=== PATIENT | female | born 1985 | race Caucasian/White ===

== ENCOUNTER 2023-04-18 20:12 | Emergency (ER) | payer OTHER, SELFPAY ==
--- NOTE | ~2023-04-18 | XR_ITS ---
EXAMINATION: XR CHEST CLINICAL INFORMATION: Chest pain. Cough. COMPARISON: None available. TECHNIQUE: 2 views of the chest were obtained. FINDINGS: No significant abnormality is noted involving the heart, lungs, mediastinum, bony thorax or soft tissues. XR/XR chest 2V IMPRESSION: Unremarkable examination.
[2023-04-18 20:16] VITALS: BP 124/69; PULSE 93; RESP 18; TEMP 36.8; O2SAT 98; BMI 26.8
--- NOTE | 2023-04-18 20:16 | ED_ITS ---
HPI - General Adult General Chief complaint: Upper Respiratory Symptoms Stated complaint: SOB, Wheezing Time Seen by Provider: 04/18/23 22:05 Source: patient Mode of arrival: ambulatory Limitations: no limitations History of Present Illness HPI narrative: Patient comes to the emergency room complaining of left-sided chest pain with deep inspiration, cough, sore throat for 2 weeks. Patient denies fever chills, no shortness of breath. Related Data Allergies Allergy/AdvReac Type Severity Reaction Status Date / Time No Known Allergies Allergy Verified 04/18/23 20:20 Review of Systems 2 Review of Systems: Constitutional : No Weight loss, No Fever, No Chills, No Night Sweats, No Fatigue, No Malaise ENT/Mouth : No Hearing loss, No Ear Pain, No Nasal Congestion, No Sinus Pain, No Hoarseness, complaining of sore throat, No Rhinorrhea, No Swallowing Difficulty Eyes: No Eye Pain, No Swelling, No Redness, No Foreign Body, No Discharge, No Vision Changes Cardiovascular : Complaining of chest pain on the left particularly with deep inspiration and palpating over the left side of the chest No SOB, No Dyspnea on Exertion, No Orthopnea, No Edema, No Palpitations Respiratory : Complaining of cough No Sputum, No Wheezing, No Smoke Exposure, No Dyspnea Gastrointestinal : No Nausea, No Vomiting, No Diarrhea, No Constipation, No abdominal Pain, No Hematochezia, No Melena Genitourinary : no irregular bleeding, No Dysuria, No Urinary Frequency, No Hematuria, No Urinary Incontinence, No Urgency, No Flank Pain, No Urinary Flow Changes, No Hesitancy Musculoskeletal : No joint pain, No Myalgias, No Joint Swelling Skin : No Skin Lesions, No rash Neuro : No Weakness, No Numbness, No Paresthesias, No Loss of Consciousness, No Dizziness, No Headache Psych : No Anxiety/Panic, No Depression, No SI/HI/AH/VH, No Social Issues, Heme/Lymph: No Bruising, No Bleeding,No Lymphadenopathy Endocrine : No Polyuria, No Polydipsia, No Temperature Intolerance PMFSH Social History Social History Advance Directives: No Advance Directives Information Provided: No Physical Exam ED Vital Signs: Vital Signs - 24 hr 04/18/23 20:16 Temperature 98.2 F Pulse Rate 93 Respiratory Rate 18 Blood Pressure 124/69 Pulse Oximetry 98 Oxygen Delivery Method Room Air BMI result Body Mass Index 26.8 Const Other: Appearance: Alert. Oriented X3. No acute distress. Eyes: Pupils equal, round and reactive to light. ENT: Pharynx normal. Neck: Normal inspection. Neck supple. No lymph nodes noted. No crepitus CVS: Reproducible chest pain to palpation over the left side of the chest, mild, Normal heart rate and rhythm. Pulses normal. Normal S1 and S2 Respiratory: No respiratory distress. Breath sounds normal. No Wheezing. No rales Abdomen: Soft and nontender. No rigidity. No distention. Skin: Skin warm and dry. Normal skin color. Normal skin turgor. Extremities: No lower extremity edema. No Lacerations. No Rash Neuro: Oriented X 3. No motor deficit. No sensory deficit. Moving all extremities. No slurred speech. CN 2 through 12 grossly intact Psych: calm, cooperative, normal affect Course Course Course Narrative: This is a rapid medical exam: Additional HPI, ROS, PE not included below will be deferred to primary provider. Patient is a 37-year-old female presenting to the ED with complaint of shortness of breath and left sided chest pain. States had cold symptoms last week which have improved but then developed the shortness of breath and chest pain for 3 days. Plan: EKG, CXR, labs, viral swabs Medical Decision Making Medical Decision Making [facility] Narrative: -my interpretation of EKG: Normal sinus rhythm, heart rate 81, no ST segment depression or elevation, nonspecific T-wave inversion in lead 3, QTC 439. -my interpretation of labs: Serology negative for influenza, RSV, COVID , troponin negative -my interpretation of chest x-ray: Negative for infiltrates Differential Diagnosis Differential Diagnoses: The differential diagnosis associated with the presentation includes (ACS, viral URI, strep) Lab Data [facility] Lab Attestation statement: I reviewed the patient's lab results. 04/18/23 22:11 04/18/23 22:11 Labs: Lab Results 04/18/23 04/18/23 Range/Units 20:23 22:11 WBC 11.4 H (4.8-10.8) X10*3/uL RBC 4.07 L (4.20-5.50) X10*6/uL Hgb 12.6 (12.0-16.0) g/dl Hct 36.8 L (37.0-47.0) % MCV 90.4 (80.0-98.0) fL MCH 31.0 (27.0-33.0) pg MCHC 34.2 (31.0-35.0) g/dl RDW 12.6 (11.0-16.0) % Plt Count 253 (160-400) X10*3/uL MPV 9.1 L (9.4-12.3) fL Immature Gran % (Auto) 0.4 (0.0-0.4) % Neut % (Auto) 58.8 (45-73) % Lymph % (Auto) 31.2 (20-40) % Gordon % (Auto) 6.2 (2-11) % Eos % (Auto) 2.6 (0-4) % Baso % (Auto) 0.8 (0-2) % Lymph # (Auto) 3.5 (1.2-4.9) X10*3/uL Gordon # (Auto) 0.7 (0.1-1.2) X10*3/uL Eos # (Auto) 0.3 (0.0-0.4) X10*3/uL Baso # (Auto) 0.1 (0.0-0.2) X10*3/uL Abs Immat Gran (auto) 0.04 H (0.00-0.03) X10*3/uL Absolute Neuts (auto) 6.7 (2.0-8.3) x10*3/uL Absolute Nucleated RBC 0.000 (0.0-0.012) X10*3/uL Nucleated RBC % (auto) 0.0 (0.0-0.2) /100WBC PT 11.3 (11.1-13.3) SEC INR 0.9 (0.9-1.1) Sodium 137 (135-145) mmol/L Potassium 3.4 (3.3-5.1) mmol/L Chloride 104 (96-108) mmol/L Carbon Dioxide 25 (22-29) mmol/L Anion Gap 11 L (12-20) BUN 12 (9-16) mg/dL Creatinine 0.66 (0.5-1.4) mg/dL Estim Creat Clear Calc 118.7 Estimated GFR > 60 Random Glucose 93 (60-115) mg/dL Calcium 8.9 (8.4-10.2) mg/dL Troponin I High Sens < 2.7 (<3.5-17.0) ng/L Influenza Type A (PCR) NEGATIVE (Negative) Influenza Type B (PCR) NEGATIVE (Negative) RSV RNA Qual (PCR) NEGATIVE (Negative) SARS-CoV-2 RNA (RT-PCR) NEGATIVE (Negative) Independent Interpretation I performed an independent interpretation of an: EKG and Plain X-Ray Radiology Impression Discussion of test interpretation with radiology: I have reviewed the radiologist's reading. Radiologist Impression: FINDINGS: No significant abnormality is noted involving the heart, lungs, mediastinum, bony thorax or soft tissues. XR/XR chest 2V IMPRESSION: Unremarkable chest examination. Discharge Plan Discharge Clinical Impression: Viral URI Patient Disposition: Home, Self-Care Instructions: Viral Syndrome (ED) Additional Instructions: Please follow-up with your primary care physician tomorrow. If you have any worsening or new symptoms, please return to the emergency room or call 911
--- NOTE | 2023-04-18 20:20 | ECG_ITS ---
Test Reason : CHEST PAIN Blood Pressure : / mmHG Vent. Rate : 081 BPM Atrial Rate : 081 BPM P-R Int : 168 ms QRS Dur : 082 ms QT Int : 378 ms P-R-T Axes : 053 021 041 degrees QTc Int : 439 ms Normal sinus rhythm Normal ECG No previous ECGs available Referred By: Faiza Sheppard Electronically Signed By:Cameron Ramirez
[2023-04-18 21:09] LABS: Influenza A PCR NEGATIVE (Negative); Influenza B PCR NEGATIVE (Negative); Resp Syncy Virus RNA Qual PCR NEGATIVE (Negative); SARS COV2 PCR INHOUSE NEGATIVE (Negative)
[2023-04-18 22:16] LABS: MANUAL DIFF FLAG NO
[2023-04-18 22:18] LABS: Basophils Absolute Auto 0.1 X10*3/uL (0.0-0.2); Basophils Percent Auto 0.8 % (0-2); Eosinophils Absolute Auto 0.3 X10*3/uL (0.0-0.4); Eosinophils Percent Auto 2.6 % (0-4); Hematocrit 36.8 % (37.0-47.0); Hemoglobin 12.6 g/dl (12.0-16.0); Imm Gran Abs Auto 0.04 X10*3/uL (0.00-0.03); Imm Gran Pct Auto 0.4 % (0.0-0.4); Lymphocytes Absolute Auto 3.5 X10*3/uL (1.2-4.9); Lymphocytes Percent Auto 31.2 % (20-40); Mean Corpuscular HGB Conc 34.2 g/dl (31.0-35.0); Mean Corpuscular Volume 90.4 fL (80.0-98.0); Mean Platelet Volume 9.1 fL (9.4-12.3); Monocytes Absolute Auto 0.7 X10*3/uL (0.1-1.2); Monocytes Percent Auto 6.2 % (2-11); Neutrophils Absolute Auto 6.7 x10*3/uL (2.0-8.3); Neutrophils Percent Auto 58.8 % (45-73); Platelet Count 253 X10*3/uL (160-400); Red Blood Count 4.07 X10*6/uL (4.20-5.50); Red Cell Distribution Width 12.6 % (11.0-16.0); White Blood Count 11.4 X10*3/uL (4.8-10.8)
[2023-04-18 22:26] LABS: INTERNATIONAL NORM RATIO 0.9 (0.9-1.1); Prothrombin Time 11.3 SEC (11.1-13.3)
[2023-04-18 22:31] LABS: Anion Gap 11 (12-20); Blood Urea Nitrogen 12 mg/dL (9-16); Calcium 8.9 mg/dL (8.4-10.2); Carbon Dioxide 25 mmol/L (22-29); Chloride 104 mmol/L (96-108); Creatinine Clr Calc Pharmacy 118.7; Estimated Glomerular Filt Rate > 60; Glucose Random 93 mg/dL (60-115); Potassium 3.4 mmol/L (3.3-5.1); Sodium 137 mmol/L (135-145)
[2023-04-18 22:41] LABS: Troponin-I High Sensitivity < 2.7 ng/L (<3.5-17.0)
[2023-04-18 23:29] VITALS: BP 123/60; PULSE 92; RESP 14; O2SAT 100
== END 2023-04-18 23:32 | disposition home or self-care (01) ==
PROVIDERS: Registered Nurse Emergency; Emergency Provider Emergency Medicine
DX: J06.9 Acute upper respiratory infection, unspecified (principal); R06.02 Shortness of breath; R07.89 Other chest pain; Z20.822 Contact with and (suspected) exposure to COVID-19; Z20.828 Contact with and (suspected) exposure to other viral communicable diseases; Z79.899 Other long term (current) drug therapy
CPT/HCPCS: 0241U; 36415; 71046; 80048; 84484; 85025; 85610; 93005; 99283; 99285

== ENCOUNTER → 2023-04-18 20:20 | Outpatient (BNV) | payer OTHER, SELFPAY | PROVIDERS: Emergency Provider Emergency Medicine; Visit Provider Internal Medicine Cardiovascular Disease | DX: R07.9 Chest pain, unspecified (principal) | CPT/HCPCS: 93010 ==

== ENCOUNTER 2025-05-01 23:16 | Emergency (ER) | payer OTHER, SELFPAY ==
--- OUTSIDE RECORDS SUMMARY | 2025-04-28 12:46 | XMS_ITS | Continuity of Care Document ---
Author Organization [facility] ter Address [address] [place] [address]- Care Team Providers Care Research Analyst Name Role Phone Not on Staff, PCP Primary Care Physician Unavail able Encounter [facility] [id number] Date(s): 04/28/25 - 04/28/25 [facility] [address] [place] [address]- Discharge Disposition: A-D/C Walkout Attending Physician: Not on Staff, Attending MD Admitting Physician: Not on Staff, Admitting MD Referring Physician: Not on Staff, Referring MD Encounter Type: Disch ES Allergies, Adverse Reactions, Alerts No Known Allergies Immunizations Given and Recorded Vaccine Date Status Refusal Reason SARS-CoV-2 (COVID-19) mRNA BNT-162b2 vac 06/27/21 Recorded SARS-CoV-2 (COVID-19) mRNA BNT-162b2 vac 01/17/21 Recorded SARS-CoV-2 (COVID-19) mRNA BNT-162b2 vac 12/27/20 Recorded Medications cetirizine 10 mg oral tablet 1 tablet = 10 mg, By Mouth, Daily, # 30 tablet, 0 Refills, Maintenance, 04/02/24 1:57:00 AM EST, Tablet, [facility]/pharmacy #[id number], Partial fill upon patient request if the prescription is for a schedule IIopioid drug., 168, cm, 04/01/24 22:02:00 EST, Height, 69.5, kg, 04/01/24 22:02:00 EST, Dry Weight Start Date: 04/02/24 Stop Date: 05/02/24 Status: Ordered Medication Dispense Status: Completed Quantity: 30.0 Unit: tablet Total Allowed Fills: 1 Fills Dispensed: 0 hydrOXYzine hydrochloride 10 mg oral tablet 2 tablet = 20 mg, By Mouth, 3 times a day, PRN as needed for anxiety, 0 Refills, Maintenance, 05/13/24 4:16:00 AM EST, Partial fill upon patient request if the prescription is for a schedule II opioid drug. Start Date: 05/13/24 Status: Ordered Medication Dispense Status: Completed Total Allowed Fills: 1 Fills Dispensed: 0 Lexapro 5 mg oral tablet 1 tablet = 5 mg, By Mouth, Daily, # 90 tablet, 0 Refills, Maintenance, 04/07/24 8:18:00 PM EST, Tablet, [facility]acy [facility][id number], Partial fill upon patient request if the prescription is for a schedule II opioid drug., 168, cm, 04/07/24 19:06:00 EST, Height, 68.5, kg, 04/07/24 19:06:00 EST, Dry Weight Start Date: 04/07/24 Status: Ordered Medication Dispense Status: Completed Quantity: 90.0 Unit: tablet Total Allowed Fills: 1 Fills Dispensed: 0 Xanax 0.25 mg oral tablet 0.25 mg, 1, tablet, By Mouth, 3 times a day, PRN, # 18 tablet, Refills 0, Tot. Refills 0, Maintenance, for anxiety, 04/07/24 8:18:00 PM EST, Route to Pharmacy Electronically, [facility]/pharmacy #[id number], Partial fill upon patient request if the prescription is for a schedule II opioid drug., 168, cm, 04/07/24 19:06:00 EST, Height, 68.5, kg, 04/07/24 19:06:00 EST, Dry Weight Start Date: 04/07/24 Status: Ordered Medication Dispense Status: Completed Quantity: 18.0 Unit: tablet Total Allowed Fills: 1 Fills Dispensed: 0 Mental Status Mental Status Assessment Assessment Assessment Component Result Effecti ve Date [place] coma score total 15 Scale weight (physic al object) Patient/family stated 04/28/25 Mental Status Assessment Assessment Assessment Component Result Effecti ve Date [place] coma score total 15 Problem List Condition Confirmation Course Effective Dates Status Health [facility] atus Informant COVID-19 1 Confirmed 03/21/24 Active 1Problem added by Discern Expert Vital Signs Most recent to oldest [Reference Range]: 1 2 Height 165 cm (04/28/25 6:02 AM) Weight 80.6 kg (04/28/25 6:02 AM) Oxygen Saturation [94-100 %] 98 % (04/28/25 6:02 AM) 98 % (04/28/25 5:38 AM) Pulse Rate [55-90 bpm] 95 bpm *H* (04/28/25 6:02 AM) 97 bpm *H* (04/28/25 5:38 AM) Body Mass Index [18.5-24.99 kg/m2] 29.61 kg/m2 *H* (04/28/25 6:02 AM) Blood Pressure [90-138/55-84 mm Hg] 120/ 75mm Hg (04/28/25 6:02 AM) Respiratory Rate [16-30 br/min] 17 br/mi n (04/28/25 6:02 AM) 16 br/min (04/28/25 5:38 AM) Temperature [96.8-100.4 DegF] 98.3 DegF (04/28/25 6:02 AM) Mode of Delivery (Oxygen) Room air (04/28/25 6:02 AM) Room air (04/28/25 5:38 AM) Blood pressure sites Arm, left (04/28/25 6:02 AM) Temperature Route Oral (04/28/25 6:02 AM) Dry Weight 80.6 kg (04/28/25 6:02 AM) Weight Obtained Via Patient/family state d (04/28/25 6:02 AM) Patient/family stated (04/28/25 5:43 AM) Dry Weight Obtained Via Patient/family s tated (04/28/25 6:02 AM) Social History Social History Type Response Smoking Status Former smoker; Other : quit 2011; 4-5cigs/d x 7y; entered on: 02/16/15 Sex Sex Representation Female (finding) Status Not Patient Care team information Care Team Personnel Name: Ale Bowman RN Position: S RN Member Role: Primary Care Nurse Name: Not on Staff, PCP Position: S Physician (General Medicine) Member Role: PCP Care Team Related Persons Name: JUAN HAN Name: ADENIKE CISNEROS Name: ALLEY FAN Name: JAVAN DOMINGUEZ Insurance Providers Guarantor name: PHIL Health Plan Information #: 1 [facility]ayer: [facility] Payer Identifier: PHIL Member Number: [id number] Group Number: [id number] Subscriber Identifier: [id number] Relationship to Subscriber: self Coverage Type: Managed Care (Private) Coverage Verification Date: NA Telecom: PHIL Address:
[2025-05-01 23:23] VITALS: BP 122/57; PULSE 104; RESP 18; TEMP 36.7; O2SAT 98; BMI 28.3
[2025-05-01 23:46] LABS: Hematocrit 39.8 % (37.0-47.0); Hemoglobin 13.4 g/dl (12.0-16.0); Imm Gran Abs Auto 0.05 X10*3/uL (0.00-0.03); Imm Gran Pct Auto 0.4 % (0.0-0.4); Lymphocytes Absolute Auto 2.9 X10*3/uL (1.2-4.9); MANUAL DIFF FLAG NO; Mean Corpuscular HGB Conc 33.7 g/dl (31.0-35.0); Mean Corpuscular Hemoglobin 30.2 pg (27.0-33.0); Mean Corpuscular Volume 89.8 fL (80.0-98.0); NRBC Abs Auto 0.000 X10*3/uL (0.0-0.012); NRBC Pct Auto 0.0 /100WBC (0.0-0.2); Platelet Count 289 X10*3/uL (160-400); Red Blood Count 4.43 X10*6/uL (4.20-5.50); White Blood Count 12.9 X10*3/uL (4.8-10.8)
[2025-05-01 23:47] LABS: Appearance Urine Clear; Glucose Urine UA Negative (Negative); PH 7.5 (5.0-9.0); Specific Gravity - Urine 1.025 (1.005-1.025)
[2025-05-01 23:54] LABS: UPreg QC Valid YES
[2025-05-02 00:03] LABS: Alanine Aminotransferase 37 U/L (0-31); Albumin Level 4.1 g/dL (3.5-5.0); Alkaline Phosphatase 85 U/L (39-117); Anion Gap 12 (12-20); Aspartate Amino Transferase 24 U/L (5-31); Blood Urea Nitrogen 8 mg/dL (9-16); Calcium 8.8 mg/dL (8.4-10.2); Carbon Dioxide 24 mmol/L (22-29); Chloride 108 mmol/L (96-108); Creatinine Clr Calc Pharmacy 117.4; Estimated Glomerular Filt Rate > 60; Lipase 28 U/L (8-78); Potassium 4.0 mmol/L (3.3-5.1); Sodium 140 mmol/L (135-145); Total Protein 7.5 g/dL (6.5-8.0)
--- NOTE | 2025-05-02 01:35 | ED_ITS ---
HPI - Abdominal Pain General Chief Complaint: Abdominal Pain Stated Complaint: swollen stomach after taking antibiotics Time Seen by Provider: 05/02/25 01:02 Source: patient Mode of arrival: ambulatory Limitations: no limitations History of Present Illness ED Provider: Dr. Cata Fried HPI narrative: 39 year old female presents with approximately one week of abdominal bloating/cramping and back pain that began after starting nitrofurantoin (Macrobid) for a provider-diagnosed UTI. She completed a 7-day course yesterday (twice daily dosing). She also began intravaginal bacterial-vaginosis (BV) gel this morning. Initially the pain radiated from the abdomen to the shoulders, but now localizes to the lower back and worsens with sitting; intensity is intermittent. She describes a tight sensation ?under the ribs.? Associated symptoms: nausea and one episode of emesis; no fever; no gross hematuria; no blood in stool; bowel movements unchanged from baseline (loose after fatty foods due to prior cholecystectomy). Urinary malodor and vaginal discharge have improved since antibiotic therapy. Denies current dysuria. Past treatment: Macrobid ? 7 days (completed), BV gel started today. Relief/aggravating factors: Pain worsens with activity/sitting; no medications taken for pain prior to visit. Additional history: Type 2 diabetes mellitus; cholecystectomy two years ago; history of very low vitamin D with prior weight loss; new-onset anxiety since COVID-19 infection; intermittent hand numbness on waking?PCP suggested possible carpal tunnel vs Raynaud?s; reports mild intermittent joint swelling. Works in medical field (senior care). Related Data Previous Rx's ?Medication ?Instructions ?Recorded dicyclomine 20 mg tablet 20 mg PO TID #10 tabs Allergies Allergy/AdvReac Type Severity Reaction Status Date / Time No Known Allergies Allergy Verified 05/01/25 23:25 Review of Systems Review of Systems as per HPI, full review of systems performed and negative but for the above mentioned pertinent positives and negatives. [facility] Social History Social History Advance Directives: No Advance Directives Information Provided: Yes Physical Exam ED Exam Exam: GENERAL: Ill-Appearing, appears uncomfortable. SKIN: Normal skin color for ethnicity, warm, dry, no rashes noted. HEENT:? Normocephalic, atraumatic, no stridor, dry mucous membranes, dentition intact, EOMI. NECK: Soft, supple, full ROM, midline structures nontender, no step-offs, no deformities, no lymphadenopathy. CHEST: Heart regular tachycardia, no murmurs, symmetric chest rise and fall. PULMONARY: Clear to auscultation bilaterally, diminished at the bases, no labored breathing, no wheezes/rhales/rhonchi. ABDOMINAL: Soft, nondistended, suprapubic tenderness to palpation without rebound or guarding, positive bowel sounds in all quadrants. : Deferred. MUSCULOSKELETAL: Normal tone, full range of motion, no deformities, no peripheral edema. NEURO: Alert and oriented x3, CN II through XII intact, equal strength and sensation bilateral upper and lower extremities, no focal neurologic deficits.? PSYCHIATRIC: Flat affect, fluid speech, good eye contact and appropriate demeanor. Vital Signs: Vital Signs - 24 hr 05/01/25 23:23 Temperature 98.0 F Pulse Rate 104 H Respiratory Rate 18 Blood Pressure 122/57 L Pulse Oximetry 98 Oxygen Delivery Method Room Air BMI result Body Mass Index 28.3 Medical Decision Making Medical Decision Making MDM Narrative: Emergency Department Course Recent blood work reviewed and within normal limits: no sign of severe infection, not anemic, electrolytes normal, kidney function normal, liver function normal. First oral dose of dicyclomine (Bentyl) administered in ED to address bloating and visceral spasms. Patient counseled extensively on antibiotic-associated dysbiosis, hydration, probiotics, BV self-care options, partner treatment considerations, and vitamin supplementation. Assessment & Plan Diagnoses: * Abdominal bloating and cramping likely secondary to post-antibiotic gut adalberto disruption * Mechanical/visceral lower back pain associated with abdominal discomfort * Status post treated UTI (nitrofurantoin course completed) * Bacterial vaginosis ? currently using intravaginal gel * Anxiety ? situational/post-COVID * History of vitamin D deficiency * Possible carpal tunnel syndrome vs Raynaud?s (hand numbness) Plan: * Dicyclomine 20 mg PO up to four times daily as needed for abdominal spasms; first dose given in ED, prescription sent to [facility] 24-hour pharmacy. * Probiotics: Encourage daily yogurt (e.g., strawberry) or OTC probiotic supplement to restore gut adalberto. * Hydration: Emphasized importance of adequate water intake. * BV self-management: May use OTC miconazole (Monistat) products (suppository and/or cream) if recurrent; discussed partner prophylaxis with single-dose metronidazole if recurrent infections occur. * Vitamin supplementation: Resume daily vitamin D3 per PCP instructions; vitamin B-complex acceptable if desired. * Hand numbness: Wrist massage techniques reviewed for symptomatic relief; follow-up with PCP for ongoing evaluation of carpal tunnel vs Raynaud?s. Disposition First dose of medication administered in ED; prescriptions sent electronically. Differential Diagnosis Differential diagnosis for this patient is broad.? It includes appendicitis, cholecystitis, bowel obstruction, diverticulitis, peptic ulcer disease, pyelonephritis, vascular pathology, UTI, among many others. Admission/Observation Consideration of admission/observation: Escalation of care including admission/observation considered Lab Data MDM Lab Attestation statement: I reviewed the patient's lab results. 05/01/25 23:40 05/01/25 23:40 Labs: Lab Results 05/01/25 Range/Units 23:40 WBC 12.9 H (4.8-10.8) X10*3/uL RBC 4.43 (4.20-5.50) X10*6/uL Hgb 13.4 (12.0-16.0) g/dl Hct 39.8 (37.0-47.0) % MCV 89.8 (80.0-98.0) fL MCH 30.2 (27.0-33.0) pg MCHC 33.7 (31.0-35.0) g/dl RDW 12.7 (11.0-16.0) % Plt Count 289 (160-400) X10*3/uL MPV 8.4 L (9.4-12.3) fL Immature Gran % (Auto) 0.4 (0.0-0.4) % Neut % (Auto) 62.8 (45-73) % Lymph % (Auto) 22.1 (20-40) % [place] % (Auto) 6.5 (2-11) % Eos % (Auto) 7.7 H (0-4) % Baso % (Auto) 0.5 (0-2) % Lymph # (Auto) 2.9 (1.2-4.9) X10*3/uL [place] # (Auto) 0.8 (0.1-1.2) X10*3/uL Eos # (Auto) 1.0 H (0.0-0.4) X10*3/uL Baso # (Auto) 0.1 (0.0-0.2) X10*3/uL Abs Immat Gran (auto) 0.05 H (0.00-0.03) X10*3/uL Absolute Neuts (auto) 8.1 (2.0-8.3) x10*3/uL Absolute Nucleated RBC 0.000 (0.0-0.012) X10*3/uL Nucleated RBC % (auto) 0.0 (0.0-0.2) /100WBC Sodium 140 (135-145) mmol/L Potassium 4.0 (3.3-5.1) mmol/L Chloride 108 (96-108) mmol/L Carbon Dioxide 24 (22-29) mmol/L Anion Gap 12 (12-20) BUN 8 L (9-16) mg/dL Creatinine 0.67 (0.5-1.4) mg/dL Estim Creat Clear Calc 117.4 Estimated GFR > 60 Random Glucose 101 (60-115) mg/dL Calcium 8.8 (8.4-10.2) mg/dL Total Bilirubin 0.2 (0.0-1.0) mg/dL Direct Bilirubin < 0.2 (0.0-0.5) mg/dL AST 24 (5-31) U/L ALT 37 H (0-31) U/L Alkaline Phosphatase 85 (39-117) U/L Total Protein 7.5 (6.5-8.0) g/dL Albumin 4.1 (3.5-5.0) g/dL Lipase 28 (8-78) U/L Urine Color Yellow Urine Appearance Clear Urine pH 7.5 (5.0-9.0) Ur Specific [place] 1.025 (1.005-1.025) Urine Protein Negative (Neg-Trace) mg/dL Urine Glucose (UA) Negative (Negative) mg/dL Urine Ketones Negative (Negative) mg/dL Urine Blood Negative (Negative) Urine Nitrite Negative (Negative) Ur Leukocyte Esterase Negative (Negative) Urine Test NEGATIVE (NEGATIVE) External Record Review External record reviewed: Inpatient record Prescription Management I considered prescription management with: Pain Medication and Antibiotic Social Determinants Patient?s care significantly limited by Social Determinants of Health including: Other Social Determinant of Health Medications Administered Discontinued Medications Generic Name Dose Route Start Last Admin Trade Name Verónica PRN Reason Stop Dose Admin Dicyclomine HCl 20 mg 05/02/25 01:34 05/02/25 01:48 Dicyclomine Hcl 10 Mg Capsule PO 05/02/25 01:35 20 mg ONCE ONE Administration Discharge Plan Discharge Clinical Impression: Abdominal bloating Patient Disposition: Home, Self-Care Instructions: Gas and Bloating (ED) Additional Instructions: DIAGNOSIS & TREATMENT: You were seen in the Emergency Department for your abdominal pain. We performed blood work which did not reveal any acute abnormalities that would explain your symptoms. Your pain is most likely related to abdominal bloating after being on antibiotics. FURTHER CARE: We have not found any emergent physical exam or lab abnormalities that would require admission to the hospital today. Many people who come to the ER with abdominal pain do not leave with a specific diagnosis at the end of their visit. In the Emergency Department we try to make sure that there is no emergent problem that needs surgery or antibiotics right now. This does not mean that your evaluation is complete--please be sure to follow up with your regular doctor as additional testing as an outpatient may be indicated Please be certain to drink plenty of fluids over the next several. You should advance your diet as tolerated. You may wish to start with the BRAT diet (bananas, rice, applesauce, toast). WHEN YOU SHOULD BE SEEN NEXT: Please follow-up with your primary care provider within the next 2-3 days for reevaluation of your symptoms. WHEN TO RETURN TO THE ED: Monitor your symptoms closely and return to the emergency department immediately for any new/worsening symptoms, worsening abdominal pain, pain which changes location (particularly if it moved to the right lower quadrant), nausea, vomiting, blood in your stool, black/tarry stools, chest pain, shortness of breath, fevers, chills, night sweats, you are unable to arrange follow-up care, or any other concerning symptoms. Prescriptions: New dicyclomine 20 mg tablet 20 mg PO TID Qty: 10 0RF Interventions: ED Discharge Assessment Last Done: 05/02/25 01:48 Discharge Date/Time: 05/02/25 01:50 Print Language: Danish
--- OUTSIDE RECORDS SUMMARY | 2025-05-02 01:43 | XMS_ITS | Clinical Summary ---
Author Organization [facility] Address [address] [place], [place] [id number] Phone Care Team Providers Care Brass Plater Name Role Phone Unknown, Unknown Primary Care Provider Yoselyn saavedra Social History Tobacco Use Types Packs/Day Years Used Date Smoking Tobacco: Never Assessed Education Answer Date Recorded Are you interested in more education? Not on julio e 08/31/2022 Are you concerned about learning? Not on file 08/31/2022 No 08/31/2022 No 08/31/2022 Digital Access Answer Date Recorded No 09/29/2022 No 09/29/2022 No 09/29/2022 Reliable internet access at home? Not on file 09/29/2022 Device with a working camera? Not on file Comments Unknown Sex and Gender Information Value Date Recorded Sex Assigned at Not on file Legal Sex Female 9:42 AM EDT Gender Identity Not on file Sexual Orientation Not on file Plan of Treatment Health Maintenance Due Date Last Done Comments DEPRESSION SCREENING 1995 SMOKING Hx and SMOKELESS TOBACCO SCREENING 11/14/1996 HEPATITIS C SCREENING 11/14/2001 HIV ONE-TIME SCREENING (18-6 5 YEARS) 11/14/2001 PAP SMEAR 11/14/2004 MAMMOGRAM 2023 INFLUENZA VACCINE (#1) 2024 COVID-19 VACCINE (2024-2 6 season) 2025 01/17/2021, 12/27/2020 Adult Td,Tdap Booster 04/11/2026 04/11/2016 HEPATITIS A VACCINES Aged Out No long er eligible based on patient's age to complete this topic HIB VACCINES Aged Out No longer eligi ble based on patient's age to complete this topic MENINGOCOCCAL VACCINES (ACWY) Aged Out No longer eligible based on patient's age to complete this topic MENINGOCOCCAL VACCINES (B) Aged Out N o longer eligible based on patient's age to complete this topic PNEUMOCOCCAL VACCINES (0-49 years) Aged Out No longer eligible b ased on patient's age to complete this topic Medical Devices Not on file Insurance AETNA O POS EPO [facility] E[facility] EPO AETNA HMO POS EPO AETNA HMO POS EPO AET[employer] HMO POS EPO Care Teams Brass Plater Relationship Specialty Start Date End Date Unknown, Unknown, PCP - General 05/30/21 Additional Source Comments The information contained in this document represents components of the legal health record. It is not the complete legal health record.[facility]
--- OUTSIDE RECORDS SUMMARY | 2025-05-02 01:43 | XMS_ITS | Encounter Summary ---
Author Organization [employer] Address [address] [place] [address] Care Team Providers Care Line Tender Flakeboard Name Role Phone Soo Nowak MD Primary Care Provider [phone] Reason for Visit * Reason Onset Date Comments UTI 04/28/2025 Encounter Details Date Type Department Care Team (Late st Contact Info) Description 04/28/2025 Telephone Internal Medicine - [facility] [address] [facility] [place] [address] Soo Nowak MD [address] [place] [address] Social History Tobacco Use Types Packs/Day Years Used Date Smoking Tobacco: Former Cigarettes 0 Q uit: 05/06/2011 Smokeless Tobacco: Never Comments:Quit 2011 Alcohol Use Standard Drinks/Week Comments Yes 0 (1 standard drink = 0.6 oz pur e alcohol) Comments No Sex and Gender Information Value Date Recorded Sex Assigned at Female 03/31/2024 8:18 AM EST Legal Sex Female 11:39 AM EST Gender Identity Female 03/23/2024 8:45 PM EST Sexual Orientation Straight 03/31/2024 8: 18 AM EST documented as of this encounter Functional Status * Are you deaf or do you have serious difficulty hearing? Answer Date of Assessment Author No 03/31/2024 8:10 AM Luciana Tolentino RN * Are you blind or do you have serious difficulty seeing, even when wearing glasses? Answer Date of Assessment Author No 03/31/2024 8:10 AM Luciana Tolentino RN * Do you have serious difficulty walking or climbing stairs? Answer Date of Assessment Author No 03/31/2024 8:10 AM Luciana Tolentino RN * Do you have serious difficulty dressing or bathing? Answer Date of Assessment Author No 03/31/2024 8:10 AM Luciana Tolentino RN * Because of a physical, mental, or emotional condition, do you have serious difficulty doing errandsalone such as visiting the doctor? Answer Date of Assessment Author No 03/31/2024 8:10 AM Luciana Tolentino RN documented as of this encounter Mental Status * Because of a physical, mental, or emotional condition, do you have serious difficulty concentrating, remembering, or making decisions? (5 years old or older) Answer Entry Date Author No 03/31/2024 8:10 AM Luciana Tolentino RN documented in this encounter Progress Notes * Toma Nunez RN - 04/28/2025 11:58 AM EST Spoke with the patient c/o UTI went to an urgent care given antibiotics but not feeling any better.Advised to call the urgent care tell them she isnt feeling any better . And is there something elseshe could try . She will call the urgent care * Leslie Llamas - 04/28/2025 11:31 AM EST Patient call requires triage: Symptoms patient is presenting: UTI sx How long has patient had these symptoms?: 3-4 days For ALL patients calling to schedule any appointment (routine, sick visit, follow up, consult, etc.) in the outpatient setting please ask the following questions: Do you have fever of higher than 101, sore throat with difficulty swallowing or severe shortness ofbreath? no If YES to any of these above symptoms, send a message to triage and do not book. Red dot. If no, an audio or video visit should be booked. Have you had close contact with someone with Coronavirus in the last 14 days? no Have you traveled abroad? no Have you traveled recently to another state outside of [place], [place], [place], [place], [place], [place], [place]? no o If yes, did you quarantine for 14 days or have a negative covid test? no If yes to any of the above, patient is not to be scheduled in office until after 14 day quarantine or negative covid test. If pain or injury related was it due to an accident at work or from a motor vehicle accident? If yes, date of accident/Injury: No If yes, gather 3rd alliance party insurance information Third Green Party Information: not applicable PCP: Soo Nowak MD Payor: SAGE / Plan: AETNA OPEN ACCESS SELECT / Product Type: *No Product type* / documented in this encounter Plan of Treatment Upcoming Encounters Date Type Department Care Team (Late st Contact Info) Description 08/09/2025 2:00 PM EDT Office Visit Internal Medicine - [address] [place] [address] Soo Nowak MD [address] [place] [address] documented as of this encounter Visit Diagnoses Not on filedocumented in this encounter Additional Health Concerns Assessment Noted Time PHQ-9 Depression Total Score: 17 025 11:50 AM EDT documented as of this encounter Care Teams Line Tender Flakeboard Relationship Specialty Start Date End Date Soo Nowak MD [address] [place] [address] [place] [phone] PCP - General Internal Medicine 07/07/24 documented as of this encounter
--- OUTSIDE RECORDS SUMMARY | 2025-05-02 01:43 | XMS_ITS | Clinical Summary ---
Author Organization [facility] Address [address] [place] [address] Phone Care Team Providers Care Back Tender Paper Machine Name Role Phone Soo Nowak MD Primary Care Provider [phone] Allergies No known active allergies Medications ergocalciferol (VITAMIN D-2) 1,250 mcg (50,000 unit) capsule Take 1 capsule (50,000 Units total) by mouth every 30 (thirty) days. 3 each 2 02/01/2025 6 Active Active Problems Problem Noted Date Diagnosed Date ASCUS of cervix with negative high risk HPV 06/2024 Encounters Date Type Department Care Team Description 04/28[facility] [address] [place] [phone] Soo Nowak MD 02/01/2025 1:30 PM EDT [facility] [phone] Soo Nowak MD Annual physical exam (Primary Dx); Palpitations; ASCUS of cervix with negative high risk HPV; Bilateral carpal tunnel syndrome from Last 3 Months Surgical History Surgery Date Site/Laterality Comments ELBOW SURGERY Right PROCEDURE: HISTORICAL ELBOW SURGERY CHOLECYSTECTOMY Medical History Medical History Date Comments Gallstone DX:Gallstone Anxiety disorder Family History Medical History Relation Name Comments Diabetes Father Breast cancer Maternal Grandmother Other: etoh and drug abuse Mother Colon cancer Neg Hx Ovarian cancer Neg Hx Relation Name Status Comments Father Alive Maternal Grandmother Mother Social History Tobacco Use Types Packs/Day Years Used Date Smoking Tobacco: Former Cigarettes 0 Q uit: 05/06/2011 Smokeless Tobacco: Never Tobacco Cessation:Counseling Given: Not Answered Comments:Quit 2011 Alcohol Use Standard Drinks/Week Comments Yes 0 (1 standard drink = 0.6 oz pur e alcohol) Comments No Sex and Gender Information Value Date Recorded Sex Assigned at Female 03/31/2024 8:18 AM EST Legal Sex Female 11:39 AM EST Gender Identity Female 03/23/2024 8:45 PM EST Sexual Orientation Straight 03/31/2024 8: 18 AM EST Obstetrics History * This document contains information received from the source organization and may not represent a complete record from that organization. Para Term AB IAB SAB Ectopic Multiple Livin g Live Births 3 1 1 0 0 0 1 1 Date Outcome GA Total Labor Labor/2nd/3rd Weight Sex Type Anes PTL Sarai A1 A5 Name Clin 1999 Term M Vag-S pont Living Last Filed Vital Signs Vital Sign Reading Time Taken Comments Blood Pressure 128/75 02/01/2025 1:24 PM EDT Pulse 102 02/01/2025 1:24 PM EDT Temperature 36.5 C (97.7 F) 06/19/2024 9:02 AM EST Respiratory Rate 16 06/19/2024 9:02 AM EST Oxygen Saturation 98% 03/31/2024 10:20 AM EST Inhaled Oxygen Concentration - - Weight 77 kg (169 lb 12.8 oz) 02/01/2025 1:24 PM EDT Height 167.6 cm (5' 6 ) 02/01/2025 1:24 PM EDT Body Mass Index 27.41 02/01/2025 1:24 PM EDT Plan of Treatment Upcoming Encounters Date Type Department Care Team (Late st Contact Info) Description 08/09/2025 2:00 PM EDT [facility] [address] [place], [place] [phone] Soo Nowak MD [address] [place], [place] Health Maintenance Due Date Last Done Comments Breast Cancer Screening 1983 Hepatitis B Vaccines (1 of 3 - 19+ 3-dose series) 11/14/2002 HPV Vaccines (1 - 3-dose SCD M series) 11/14/2010 Social Influencers of Health Screening 04/03/2022 COVID-19 Vaccine (4 - 2024-2 6 season) 2025 06/27/2021, 01/17/2021, 12/27/2020 Influenza Vaccine (#1) 2025 DTaP,Tdap,and Td Vaccines (2 - Td or Tdap) 04/11/2026 04/11/2016 Cervical Cancer Screening: HPV 08/27/2029 0 08/27/2024, 08/08/2021 RSV Immunization Adult Patients (1 - 1-dose 75+ series) 11/14/2058 Depression Screening Completed 08/11/2024 HIV Screening Completed 08/27/2024, 08/08/2021 Hepatitis C Screening Completed 08/27/2024 , 08/08/2021 HIB Vaccines Aged Out No longer eligi ble based on patient's age to complete this topic Hepatitis A Vaccines Aged Out No long er eligible based on patient's age to complete this topic IPV Vaccines Aged Out No longer eligi ble based on patient's age to complete this topic MMR Vaccines Aged Out No longer eligi ble based on patient's age to complete this topic Meningococcal ACWY Vaccine Aged Out N o longer eligible based on patient's age to complete this topic Meningococcal B Vaccine Aged Out No l onger eligible based on patient's age to complete this topic Pneumococcal Vaccine: Pediatrics (0 to 5 Years) and At-Risk Patients (6 to 49 Years) Aged Out No longer eligible b ased on patient's age to complete this topic RSV Immunization Patients Under 20 months Aged Out No longer eligible b ased on patient's age to complete this topic Varicella Vaccines Aged Out No longer eligible based on patient's age to complete this topic Procedures Procedure Name Priority Date/Time Associated Diagnosis Comments HPV WITH REFLEX GENOTYPE Routine 08/27/2024 10:48 AM EDT Encounter for gynecological examination Screen for STD (sexually transmitted disease) HEPATITIS C ANTIBODY Routine 08/27/2024 10:32 AM EDT Encounter for gynecological examination Screen for STD (sexually transmitted disease) HIV 1, 2 ANTIBODY, P24 ANTIGEN WITH REFLEX TO DIFFERENTIATION Routine 08/27/2024 10:32 AM EDT Encounter for gynecological examination Screen for STD (sexually transmitted disease) from Last 3 Months or Most Recently Relevant to Health Maintenance Results * HPV with reflex genotype (08/27/2024 10:48 AM EDT) HPV Negative Negative LAB MICROBIOLOGY METHOD 08/31/2024 1:07 PM EDT [facility] Brushing/Spatula Cervix uteri structure / Unknown 08/27/2024 10:48 AM EDT 08/28/2024 8:23 AM EDT us Brittany Pinedo CNM LAB MOLECULAR DIAGNOSTICS ORDER GAMA Final Result Performing Organization Address [facility]/ZIP Co de Phone Number [facility] [address] [place] [address], [place] [phone] * Hepatitis C antibody (08/27/2024 10:32 AM EDT) Pathologist [facility] Hepatitis C Antibody Negative Negative LAB CHEMISTRY METHOD 08/27/2024 2:34 PM EDT [facility] Blood Venous blood specimen / Unknown Venipuncture / Unknown 08/27/2024 10:32 AM EDT 08/27/2024 10:32 AM EDT Brittany Pinedo CNM LAB BLOOD ORDERABLES Final Resu lt [facility] [address] [place] [address], [place] [phone] * HIV 1,2 antibody, p24 antigen with reflex to differentiation (08/27/2024 10:32 AM EDT) HIV Combo AB/AG Negative Negative LAB CHEMISTRY METHOD 08/27/2024 2:34 PM EDT [facility] Blood Venous blood specimen / Unknown Venipuncture / Unknown 08/27/2024 10:32 AM EDT 08/27/2024 10:32 AM EDT Narrative [facility] - 08/27/2024 2:34 PM EDT This assay is a 4th generation assay allowing for earlier detection of HIV infection by detecting the presence of the HIV-1 p24 antigen as well as the traditional antibodies to HIV type 1 (including group O) and type 2. Use of a 4th generation assay is the current CDC recommendation for HIV screening. us Brittany HARDIN LAB BLOOD ORDERABLES Final Resu lt [facility] [address] [place] [address], from Last 3 Months or Most Recently Relevant to Health Maintenance Insurance A[employer] Care Teams Back Tender Paper Machine Relationship Specialty Start Date End Date Soo Nowak MD [address] [place], [place] PCP - General Internal Medicine 07/07/24
[2025-05-02 01:48] VITALS: BP 106/61; PULSE 89; RESP 14; TEMP 36.6; O2SAT 97
== END 2025-05-02 01:50 | disposition home or self-care (01) ==
PROVIDERS: Emergency Provider Emergency Medicine
DX: R14.0 Abdominal distension (gaseous) (principal); F41.9 Anxiety disorder, unspecified; N76.0 Acute vaginitis; M54.9 Dorsalgia, unspecified; Z79.899 Other long term (current) drug therapy; T37.8X5A Adverse effect of other specified systemic anti-infectives and antiparasitics, initial encounter; Y92.89 Other specified places as the place of occurrence of the external cause
CPT/HCPCS: 36415; 80053; 81003; 81025; 82248; 83690; 85025; 99282; 99283